=== PATIENT | female | born 1930 | race American Indian/Alaskan Native ===

== ENCOUNTER 2017-04-25 01:46 | Inpatient (IN) | payer MEDICARE ==
[2017-04-25] MEDS ORDERED: TYLENOL #3 PO ONE (02:34)
--- NOTE | 2017-04-25 02:35 | Emergency Department Report ---
ED Fall HPI - General Chief Complaint: Pain General Stated Complaint: RT RIB APIN Time Seen by Provider: 04/25/17 02:25 Source: patient, EMS (ems notes not available at time of chart dictation), old records reviewed Mode of arrival: Stretcher Limitations: Physical Limitation - History of Present Illness Initial Comments: This is an 87-year-old female, the patient is previously known to this provider. Patient is [facility] for evaluation of right-sided rib fracture. Patient has a past medical history of hypothyroidism, high cholesterol, hypertension. Patient reports that she was getting transitioning from a toilet, and she fell onto her right sided chest wall. She reports that she did not hit her head, she did not hit her neck. The patient denies headache, neck pain, abdominal pain, shortness of breath, urinary symptoms, extremity weakness, extremity tenderness. She has right-sided chest wall pain, which increases with palpation , and decreases with rest. MD Complaint: fall Fall From: standing When Fall Occurred: unsure Fall Witnessed: no Place Fall Occurred: jail[facility]SNF Loss of Consciousness: none Prolonged Down Time?: no Symptoms Prior to Fall: none Location: chest Severity: moderate Quality: aching Context: tripped/slipped Associated Symptoms: other (right-sided chest wall pain). denies: headache, neck pain, numbness, weakness, shortness of breath, abdominal pain, hematuria, unable to walk, lightheaded, vertigo, confusion - Related Data Allergies Allergy/AdvReac Type Severity Reaction Status Date / Time No Known Allergies Allergy Verified 04/25/17 02:00 ED Review of Systems ROS: Stated complaint: RT RIB APIN Other details as noted in HPI Constitutional: malaise. denies: fever Eyes: denies: vision change ENT: denies: epistaxis Respiratory: other (right chest wall pain) Cardiovascular: denies: syncope Gastrointestinal: denies: abdominal pain Genitourinary: denies: dysuria Skin: denies: as per HPI, lesions Neurological: weakness Psychiatric: denies: anxiety ED Past Medical Hx - Past Medical History Previous Medical History?: Yes Hx Psychiatric Treatment: Yes (depression) Additional medical history: cholestrol, hypothyroid, glaucoma, Hyponatremia, Encephalopathy cystitis - Social History Smoking Status: Never Smoker Substance Use Type: None ED Physical Exam - General Limitations: Physical Limitation General appearance: alert, in no apparent distress - Head Head exam: Present: atraumatic, normocephalic - Eye Eye exam: Present: EOMI, other (right pupil cataract is noted, left pupil is surgical, bilateral arcus senilis). Absent: normal appearance - ENT ENT exam: Present: normal exam, normal orophraynx, mucous membranes moist, normal external ear exam - Neck Neck exam: Present: normal inspection, full ROM. Absent: tenderness, meningismus - Respiratory Respiratory exam: Present: normal lung sounds bilaterally, chest wall tenderness , other (there is reproducible right-sided chest wall tenderness, no obvious crepitus). Absent: respiratory distress, wheezes, rales, rhonchi, stridor - Cardiovascular Cardiovascular Exam: Present: regular rate, normal rhythm, normal heart sounds. Absent: bradycardia, tachycardia, irregular rhythm, systolic murmur, diastolic murmur, rubs, gallop - GI/Abdominal GI/Abdominal exam: Present: soft, normal bowel sounds. Absent: distended, tenderness, guarding, rebound, rigid, pulsatile mass, hernia - Extremities Exam Extremities exam: Present: normal inspection, normal capillary refill, pedal edema, other (the compartments are soft. Pelvis is stable. There is no long bony tenderness. 2+ pulses noted in the bilateral upper and lower extremities) . Absent: calf tenderness - Back Exam Back exam: Present: normal inspection, full ROM. Absent: CVA tenderness (L), muscle spasm, paraspinal tenderness - Neurological Exam Neurological exam: Present: alert (patient is alert to name, andthe location), other (Extraocular movements intact. Tongue midline. No facial droop. Facial sensation intact to light touch in the V1, V2, V3 distribution bilaterally. 5 and 5 strength in 4 extremities.. Sensation is intact to light touch in 4 extremities.) - Psychiatric Psychiatric exam: Present: normal affect, normal mood - Skin Skin exam: Present: warm, dry, intact, normal color. Absent: rash ED Course - Reevaluation(s) Reevaluation #1: 04/25/17 03:13 Differential diagnosis: Intracranial injury, chest wall fracture, pulmonary contusion, multiple rib fractures, urinary tract infection Assessment and plan: 87-year-old female, nonfocal neurologic examination, reports having fallen onto her right chest wall, did not hit her head, did not hit her neck, neurologic examination is nonfocal. Patient is afebrile, with reassuring vital signs, and remarkably well-appearing, her physical exam is nonfocal with the exception of reproducible right-sided chest wall tenderness. Had outpatient x-rays confirming a right-sided 6 rib fracture, with no pelvic fracture or dislocation. Patient is placed on a pulse oximeter, incentive spirometry is ordered, acetaminophen No. 3 is ordered, noncontrast CT scan of the chest ordered to assess for occult injury given his advanced age, and CT scan of the brain will be obtained given the acceleration component. The patient is quite lucid and cogent, indicates she did not hit her head or her neck, and there is no midline neck pain or neck tenderness, so do not believe she needs a CT of the cervical spine at this time. Reevaluation #2: 04/25/17 04:28 CT scan of the brain is negative. CT scan of the chest demonstrates isolated right-sided rib fracture, with small pneumothorax. Patient asymptomatic, however given advanced age, patient at high risk for splinting, decompensation, atelectasis and pneumonia. will discuss with pulmonary electronic engraver Plan to admit for oxygenation, pain control, pulmonary consult. Reevaluation #3: 04/25/17 04:32 Case is discussed with pulmonology, Dr. Lujan, recommends nasal cannula 4 L, case presented to the Hospital physician, Dr. Traylor, who accepts the patient to his service. Medical decision makin-year-old female with isolated rib fracture, small pneumothorax, high probability for clinical decompensation, requires airway monitoring, pain control, intercostal block, further management by pulmonary. ED Medical Decision Making - Radiology Data Radiology results: pending, report reviewed, image reviewed Noncontrast CT scan of the brain negative for acute findings. CT scan of the chest demonstrates right-sided fibrosis, small pneumothorax, isolated rib fracture without pulmonary contusion or hemorrhage. Critical care attestation.: If time is entered above; I have spent that time in minutes in the direct care of this critically ill patient, excluding procedure time. ED Disposition Clinical Impression: Pneumothorax, Rib fracture Disposition: OP ADMIT IP TO THIS HOSP Is pt being admited?: Yes Condition: Good Referrals: MIKY CARSON MD [Primary Care Provider] - 3-5 Days
--- NOTE | 2017-04-25 04:18 | Cat Scan Report ---
FINAL REPORT PROCEDURE: CT HEAD/BRAIN WO CON TECHNIQUE: Computerized tomography of the head was performed without contrast material. HISTORY: fall COMPARISON: No prior studies are available for comparison. FINDINGS: Skull and scalp: Normal. Paranasal sinuses: Normal. Ventricles and subarachnoid spaces: There is mild central and cortical atrophy appropriate for the patient's age.. Cerebrum: No evidence of hemorrhage, acute infarction or mass. There is chronic deep white matter ischemic gliosis. Cerebellum and brainstem: No evidence of hemorrhage, acute infarction or mass. Vasculature: There is calcified atherosclerosis of the intracranial arteries.. Comments: None. IMPRESSION: There is no skull fracture. There is no intracranial hemorrhage. There are age-appropriate involutional changes.
--- NOTE | 2017-04-25 04:27 | Cat Scan Report ---
FINAL REPORT PROCEDURE: CT CHEST WO CON TECHNIQUE: Computerized axial tomography of the chest was performed without contrast material. This study is performed without intravenous contrast and the sensitivity for pathology, including neoplasms, adenopathy, abscess, pulmonary embolism and aortic dissection, is reduced. HISTORY: fall COMPARISON: No prior studies are available for comparison. TECHNICAL QUALITY: Satisfactory. FINDINGS: Heart and pericardium: Normal. Thoracic aorta: Normal. Pulmonary vasculature: Normal. Lymph nodes: No enlarged thoracic lymph nodes. Lungs: There is mild COPD. There are fibrotic changes at the right lung base.. Pleural space: There is a small right pleural effusion. There is a small right pneumothorax.. Musculoskeletal structures: There is a fracture of right rib 6. Thoracic spine and sternum are intact.. Upper abdominal structures: No significant abnormality. IMPRESSION: Normal size heart. There is no evidence of mediastinal hematoma. There is mild COPD. There are fibrotic changes at the right lung base. There is a small right pleural effusion. There is a small right pneumothorax. There is a fracture of right rib 6. Thoracic spine and sternum are intact. BASILIO CHACON was notified by telephone at 3:25 a.m. central
[2017-04-25] MEDS ORDERED: TYLENOL #3 ONE (04:36)
[2017-04-25 04:56] LABS: Bilirubin,Urine NEG (Negative); Blood,Urine NEG (Negative); Ketones,Urine NEG (Negative); Leukocyte Esterase,Urine TR (Negative); Nitrite,Urine NEG (Negative); Protein,Urine <15 mg/dL mg/dL (Negative); Urobilinogen,Urine < 2.0 mg/dL (<2.0)
[2017-04-25 05:21] LABS: Hematocrit 30.7 % (30.3-42.9); Hemoglobin 9.7 gm/dl (10.1-14.3); Mean Corpuscular Volume 84 fl (79-97); Red Blood Count 3.68 M/mm3 (3.65-5.03); White Blood Count 3.1 K/mm3 (4.5-11.0)
[2017-04-25 05:22] LABS: Mean Corpuscular HGB Conc 31 % (30-34); Mean Corpuscular Hemoglobin 26 pg (28-32); Platelet Count 272 K/mm3 (140-440); Red Cell Distribution Width 17.1 % (13.2-15.2)
[2017-04-25 05:27] LABS: INR 0.96 (0.87-1.13)
[2017-04-25 05:28] LABS: Partial Thromboplastin Time 35.2 Sec. (24.2-36.6)
[2017-04-25] MEDS ORDERED: ZOFRAN IV PRN (05:34)
[2017-04-25] MEDS ORDERED: MORPHINE IV PRN (05:35)
[2017-04-25 05:36] LABS: Anion Gap 16 mmol/L; BUN/Creatinine Ratio 18; Blood Urea Nitrogen 16 mg/dL (7-17); Calcium 8.6 mg/dL (8.4-10.2); Carbon Dioxide 28 mmol/L (22-30); Chloride 102.3 mmol/L (98-107); Glucose 74 mg/dL (65-100); Potassium 4.6 mmol/L (3.6-5.0); Sodium 142 mmol/L (137-145)
--- NOTE | 2017-04-25 07:55 | History and Physical Report ---
CHIEF COMPLAINT: Pain on the right chest wall area. HISTORY OF PRESENT ILLNESS: The patient is an 87-year-old female who was noted to have fallen with pain on the right side of the chest wall area. The patient did not hit her head when she fell. There was no history of headache, no history of neck pain, shortness of breath, fever or chills. Also , the patient denies history of cough. There is history of pain on the right chest wall area. PAST MEDICAL HISTORY: Pertinent for depression, hypercholesterolemia, hypothyroidism and glaucoma, hyponatremia, encephalopathy, cystitis. PAST SURGICAL HISTORY: Not remarkable. FAMILY HISTORY: Noncontributory. SOCIAL HISTORY: The patient does not smoke, does not drink alcohol and does not use illicit drugs. MEDICATIONS: The patient's home medications are not known. REVIEW OF SYSTEMS: CONSTITUTIONAL: There is no fever, no chills, no diaphoresis. HEENT: There is no headache or sore throat. CARDIOVASCULAR: There is a right-sided chest wall pain, but no orthopnea. RESPIRATORY: There is no shortness of breath. No cough. GASTROINTESTINAL: There is no nausea, no vomiting, no abdominal pain, diarrhea or constipation. NEUROLOGICAL: There is no numbness, no dizziness, no altered mental status. MUSCULOSKELETAL: The patient has pain in the right chest wall area. There is no joint swelling. DERMATOLOGICAL: There is no skin rash or itching. GENITOURINARY: There is no dysuria, hematuria, or flank pain. Rest of system review is normal. PHYSICAL EXAMINATION: GENERAL: At the time of exam, the patient was found to be alert, oriented x 3. Not in acute distress. Vital signs: The patient's vital signs are not available at this point in time. CONSTITUTIONAL: There is no fever, no chills, no diaphoresis. HEENT: Pupils are equal, round, reactive to light and accommodation. Extraocular muscles are intact. NECK: Supple with no JVD or carotid bruit. CARDIOVASCULAR: Show first and second heart sounds with no gallops or murmur. RESPIRATORY: Show good air entry on both sides of the lung with no abnormal breath sounds. GASTROINTESTINAL: Show abdomen to be full, soft, nontender with no organomegaly or rigidity. NEUROLOGIC: Shows no focal deficits. MUSCULOSKELETAL: Showed no joint swelling, but there is tenderness in the right lateral chest wall area. GASTROINTESTINAL: Show abdomen to be full, soft, nontender with no organomegaly or rigidity. NEUROLOGIC: Shows no focal deficit. MUSCULOSKELETAL: Show no joint swelling with tenderness in the right lateral chest wall area. DERMATOLOGICAL: Show no skin rash. GENITOURINARY: Show no costovertebral angle tenderness. PERTINENT LABORATORY STUDIES: The patient had CBC done with low white count of 3.1, low hemoglobin of 9.7, normal hematocrit and coagulation studies were unremarkable. Urinalysis came back unremarkable. IMAGING STUDIES: The patient had a CT of the chest done that shows small pneumothorax on the right chest wall area. Also there is finding of mild COPD. There is also a small right pleural effusion found and there is a fracture of the right 6th rib. DIAGNOSES: 1. Right pneumothorax. 2. Right 6th rib fracture. PLAN: The patient will be admitted to medical floor on telemetry and will be on IV morphine 2 mg every 4 hours as needed for pain and IV Zofran 4 mg every 8 hours for nausea and vomiting. The patient will also be on Tylenol 650 mg by mouth every 4 hours for fever and headache. Diet will be regular diet. The patient will have sequential compressive devices as DVT prophylaxis and will continue the pulmonary consult with the on-call sales developer for the management of the small pneumothorax as ordered by the Emergency Room physician. The patient will continue oxygen by nasal cannula as ordered by the Emergency Room 4 liters per minute and will continue incentive spirometry to help with lung reexpansion. The patient's home medications will be reconciled and started when they are known. Patient will continue pulmonary consult with Dr. Lujan as stated by the ER doctor mAos Butler JOB# [id number] [facility]
--- NOTE | 2017-04-25 14:04 | Consultation ---
History of Present Illness Consult date: 04/25/17 Requesting physician: BASILIO LARSON Reason for consult: pneumothorax History of present illness: 87 y/o female, fell at long[facility]term and has rib fractures. ED CT chest and found to have small apical ptx. Asymptomatic. Admitted for further monitoring. Past History Past Medical History: hyperlipidemia Medications and Allergies Allergies Allergy/AdvReac Type Severity Reaction Status Date / Time No Known Allergies Allergy Verified 04/25/17 02:00 Home Medications Medication Instructions Recorded Confirmed Last Taken Type Acetaminophen [Tylenol Arthritis] 650 mg PO Q6H PRN 04/25/17 04/25/17 Unknown History Artificial Tears Drops 1%/0.3% 1 drop OU Q8H 04/25/17 04/25/17 Unknown History Aspirin [Aspirin BABY CHEW TAB] 81 mg PO QDAY 04/25/17 04/25/17 Unknown History Atorvastatin Calcium [Lipitor] 10 mg PO DAILY 04/25/17 04/25/17 Unknown History Calcium Carbonate [Tums] 500 mg PO DAILY 04/25/17 04/25/17 Unknown History Dorzolamide 2% (Nf) [Trusopt (Nf)] 1 drop OU TID 04/25/17 04/25/17 Unknown History Erythromycin [Erythromycin Ophth 1 applic OD HS 04/25/17 04/25/17 Unknown History Oint] Hydrochlorothiazide [Hctz] 12.5 mg PO DAILY 04/25/17 04/25/17 Unknown History Levothyroxine [Synthroid] 25 mcg PO DAILY 04/25/17 04/25/17 Unknown History Potassium Chloride 20 meq PO DAILY 04/25/17 04/25/17 Unknown History QUEtiapine [SEROquel] 25 mg PO HS 04/25/17 04/25/17 Unknown History Vitamin E 400 unit PO DAILY 04/25/17 04/25/17 Unknown History prednisoLONE ACETATE [Pred Forte] 1 drop OU QID 04/25/17 04/25/17 Unknown History Active Meds: Active Medications Acetaminophen (Tylenol) 650 mg PO Q4H PRN PRN Reason: For Pain/Fever/Headache Morphine Sulfate (Morphine) 2 mg IV Q4H PRN PRN Reason: Pain, Moderate (4-6) Ondansetron HCl (Zofran) 4 mg IV Q8H PRN PRN Reason: Nausea And Vomiting Review of Systems All systems: negative Results - Laboratory Findings CBC and BMP: 04/25/17 04:53 04/25/17 04:53 PT/INR, D-dimer PT 13.3 Sec. (12.2-14.9) 04/25/17 04:53 INR 0.96 (0.87-1.13) 04/25/17 04:53 - Diagnostic Findings CT scan - chest: image reviewed (very small PTX, likely old given some chronic underlying lung disease) Assessment and Plan 87 y/o female with right sided PTX Given patient age, lack of symptoms and underlying lung disease seen on CT, this PTX is likely old and not even related to the rib fracture. Most likely this is chronic. Would discontinue oxygen as patient was not hypoxic and only placed on this for PTX and consider discharge later today or tomorrow. No need to obtain CXR as you would likely not see this on CXR and I do not feel a repeat CT is warranted if symptomatically she is the same. Thank you for this consult.
--- NOTE | 2017-04-25 15:49 | Event Note ---
Date: 04/25/17 I have seen and evaluated the patient. Patient was admitted for fall down and rib fracture with small pneumothorax. continue with the same mangemnet per h/p.
[2017-04-26] MEDS: TYLENOL PO PRN ×2 (00:32→07:59)
--- NOTE | 2017-04-26 06:52 | Discharge Summary ---
Providers - Providers Date of Admission: 04/25/17 05:32 Date of discharge: 04/26/17 Attending physician: RAIN BENITEZ MD Primary care physician: MIKY CARSON Hospitalization Reason for admission: Fall, rib fracture, asymptomatic small apical pneumothorax Condition: Stable Pertinent studies: CT significant for small right apical pneumothorax and right 6th rib fracture Hospital course: HPI 87-year-old female who was presented to the emergency department with a history of fall and pain on the right chest wall. The patient didn't hit her head when she fell. She didn't have history of headache, history of neck pain, shortness of breath, fever, chills, or cough. CT chest was done and showed right sided 6th rib fracture, small apical pneumothorax on the right side and patient was treated symptomatically for chest pain. Pulmonary consulted and recommended the right-sided pneumothorax is small and thinks it is related to trauma and most likely old. The patient was asymptomatic and recommend to observe and discharge. Patient was hemodynamically stable, no SOB overnight and discharged back to SNF. Disposition: [id number] Time spent for discharge: 31 minutes - Discharge Diagnoses (1) Pneumothorax Status: Acute Qualifiers: Pneumothorax type: chronic pneumothorax Encounter type: E Qualified Code( s): J93.81 - Chronic pneumothorax (2) Rib fracture Status: Acute Qualifiers: Encounter type: initial encounter Rib fracture type: single rib Fracture type: closed Laterality: right Fracture healing: F Qualified Code(s): S22.31XA - Fracture of one rib, right side, initial encounter for closed fracture Core Measure Documentation - Palliative Care Palliative Care/ Comfort Measures: Not Applicable - Core Measures Any of the following diagnoses?: none Exam - Physical Exam Narrative exam: Not in cardiopulmonary distress. The patient is friable lady. Vital signs as documented. Head exam is unremarkable. No scleral icterus . Neck is without jugular venous distension, thyromegaly, or carotid bruits. Lungs are clear to auscultation. Cardiac exam reveals regular rate and Rhythm. First and second heart sounds normal. No murmurs, rubs or gallops. Abdominal exam reveals normal bowel sounds, no masses, no organomegaly and no aortic enlargement. Extremities are nonedematous and both femoral and pedal pulses are normal. 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 No focal weakness. - Constitutional Vitals: Temp Pulse Resp BP Pulse Ox 98.3 F 61 20 132/64 100 04/25/17 23:21 04/25/17 23:21 04/26/17 01:32 04/25/17 23:21 04/26/17 00:15 Plan Activity: fall precautions Weight Bearing Status: Full Weight Bearing Diet: low cholesterol, low salt Follow up with: MIKY CARSON MD [Primary Care Provider] - 3-5 Days
[2017-04-26 11:55] VITALS: BP 115/51
== END 2017-04-26 12:30 | DRG 200 ==
LOC: ED 01:46 → SUATTDRO 01:46 → 4A 05:32 → 3A 18:25
PROVIDERS: ADMIT Internal Medicine; ATTEND Internal Medicine
DX: S27.0XXA Traumatic pneumothorax, initial encounter (principal); S22.31XA Fracture of one rib, right side, initial encounter for closed fracture; E87.1 Hypo-osmolality and hyponatremia; E03.9 Hypothyroidism, unspecified; E78.00 Pure hypercholesterolemia, unspecified; H40.9 Unspecified glaucoma; I10 Essential (primary) hypertension; F32.9 Major depressive disorder, single episode, unspecified; W18.39XA Other fall on same level, initial encounter; Y93.89 Activity, other specified; Y92.89 Other specified places as the place of occurrence of the external cause; Y99.8 Other external cause status
CPT/HCPCS: 36415; 70450; 71250; 80048; 81001; 85027; 85610; 85730; 94760